=== PATIENT | female | born 1940 | race Caucasian/White ===

== ENCOUNTER 2021-01-23 13:41 | Emergency (ER) | payer OTHER ==
[2021-01-23 13:48] VITALS: BP 149/61; PULSE 60; TEMP 98.7; BMI 23.5
[2021-01-23] MEDS ORDERED: ACETAMINOPHEN 1000 MG/100 ML VIAL IVPB ONE ×2 (14:42→15:00)
[2021-01-23] MEDS ORDERED: ACETAMINOPHEN INJECTION 100 ML IVPB ONE (15:12)
[2021-01-23 15:33] LABS: INR 1.04 (0.83-1.09); PROTHROMBIN TIME (PATIENT) 12.6 SEC (9.7-13.0)
[2021-01-23 15:35] LABS: ACTIVATED PTT 31.1 SECONDS (25.2-36.5)
[2021-01-23 15:44] LABS: BLOOD UREA NITROGEN 21.6 mg/dL (7-18); CALCIUM 8.9 mg/dL (8.5-10.1)
[2021-01-23 15:45] LABS: ALBUMIN 3.2 g/dl (3.4-5.0)
[2021-01-23 15:48] LABS: CREATININE 0.8 mg/dL (0.55-1.3)
[2021-01-23 15:49] LABS: BILIRUBIN,TOTAL 0.5 mg/dL (0.2-1); TOT PROT 6.9 g/dl (6.4-8.2)
[2021-01-23 15:59] LABS: HEMATOCRIT 32.5 % (32.4-45.2); HEMOGLOBIN 10.8 GM/dL (10.7-15.3); MCHC 33.2 g/dl (32.0-36.0); MEAN CELL VOLUME 96.4 fl (80-96); PLATELET COUNT 269 10^3/uL (134-434); RBC 3.38 M/mm3 (3.60-5.2); RDW 14.6 % (11.6-15.6); WHITE BLOOD COUNT 6.9 K/mm3 (4.0-10.0)
[2021-01-23 17:15] LABS: ANISOCYTOSIS 1+; MACROCYTOSIS 0; OVALOCYTE 1+; PLATELET ESTIMATE NORMAL
== END 2021-01-23 18:13 | disposition home or self-care (01) ==
LOC: JER 13:41
PROC: 3E0333Z Introduction of Anti-inflammatory into Peripheral Vein, Percutaneous Approach (ICD-10-PCS; principal; 2021-01-23)
DX: M25.561 Pain in right knee (principal); M25.512 Pain in left shoulder; S09.90XA Unspecified injury of head, initial encounter; W01.0XXA Fall on same level from slipping, tripping and stumbling without subsequent striking against object, initial encounter
CPT/HCPCS: 36415; 70450-TC; 72125-TC; 73030-TC-LT-FY; 73070-TC-LT-FY; 73090-TC-LT-FY; 73110-TC-LT-FY; 73562-TC-RT-FY; 80053; 85025; 85610; 85730; 93005; 93010; 93971-TC; 99285-25; J0131

== ENCOUNTER 2021-08-20 14:19 | Observation (INO) | payer OTHER, MEDICARE ==
[2021-08-20] MEDS ORDERED: ACETAMINOPHEN 1000 MG/100 ML BAG IVPB ONE (15:31)
[2021-08-20] MEDS ORDERED: BEBTELOVIMAB (EUA) 175 MG/2 ML VIAL IVPUSH ONE (15:31)
[2021-08-20] MEDS ORDERED: ACETAMINOPHEN INJECTION 100 ML IVPB ONE (15:55)
[2021-08-20 16:14] LABS: VENOUS BASE EXCESS 2.3 mmol/L (-2-2); VENOUS PCO2 46.8 mmHg (38-52); VENOUS PH 7.392 (7.310-7.410)
[2021-08-20 16:18] LABS: BASO % 1.1 % (0-2.0); EOS % 1.1 % (0-4.5); HEMATOCRIT 34.6 % (32.4-45.2); HEMOGLOBIN 11.3 GM/dL (10.7-15.3); MCH 30.6 pg (25.7-33.7); MCHC 32.6 g/dl (32.0-36.0); MEAN CELL VOLUME 93.9 fl (80-96); MEAN PLT VOLUME 8.6 fl (7.5-11.1); MONO % 11.6 % (3.8-10.2); NEUT % 71.2 % (42.8-82.8); PLATELET COUNT 179 10^3/uL (134-434); RBC 3.69 M/mm3 (3.60-5.2); RDW 13.8 % (11.6-15.6); WHITE BLOOD COUNT 4.7 K/mm3 (4.0-10.0)
[2021-08-20 16:27] LABS: INR 1.37 (0.83-1.09); PROTHROMBIN TIME (PATIENT) 15.8 SEC (9.7-13.0)
[2021-08-20 16:30] LABS: ACTIVATED PTT 33.6 SECONDS (25.2-36.5)
[2021-08-20 16:31] LABS: ALBUMIN 3.7 g/dl (3.4-5.0); BLOOD UREA NITROGEN 16.2 mg/dL (7-18); CALCIUM 9.1 mg/dL (8.5-10.1)
[2021-08-20 16:34] LABS: BILIRUBIN,DIRECT 0.2 mg/dL (0.0-0.2); CREATININE 0.7 mg/dL (0.55-1.3)
[2021-08-20 16:36] LABS: BILIRUBIN,TOTAL 0.4 mg/dL (0.2-1); TOT PROT 7.3 g/dl (6.4-8.2)
[2021-08-20] MEDS ORDERED: ACETAMINOPHEN 325 MG TABLET (FP) PO PRN (18:02)
[2021-08-20] MEDS ORDERED: ALBUTEROL SO4 HFA INHALER IH PRN (18:02)
[2021-08-20] MEDS ORDERED: ATORVASTATIN CA 10 MG TABLET (FP) PO SCH (22:00)
[2021-08-21 01:39] VITALS: BMI 23.3
[2021-08-21 05:00] LABS: EPI CELLS 7 /uL (0-25.1); HYALINE CASTS 2 /uL (0-3.1); PH,URINE 5.5 (5.0-8.0); URINE APPEARANCE CLEAR; URINE BACTERIA 40 /uL (0-1359); URINE BILIRUBIN NEGATIVE (NEGATIVE); URINE COLOR YELLOW; URINE GLUCOSE (UA) NEGATIVE (NEGATIVE); URINE KETONE NEGATIVE (NEGATIVE); URINE LEUK ESTERASE NEGATIVE (NEGATIVE); URINE NITRITE NEGATIVE (NEGATIVE); URINE PROTEIN NEGATIVE (NEGATIVE); URINE RBC 15 /uL (0-23.9); URINE WBC 9 /uL (0-25.8)
[2021-08-21] MEDS ORDERED: ONDANSETRON 4 MG/2 ML VIAL IVPUSH ONE (06:11)
[2021-08-21 09:27] LABS: CALCIUM 8.3 mg/dL (8.5-10.1)
[2021-08-21 09:28] LABS: BLOOD UREA NITROGEN 19.4 mg/dL (7-18)
[2021-08-21 09:31] LABS: CREATININE 0.7 mg/dL (0.55-1.3)
[2021-08-21 10:00] LABS: URINE CRYSTALS CA OXALATE /hpf
[2021-08-21] MEDS ORDERED: PANTOPRAZOLE 40 MG TABLET PO SCH (10:00)
[2021-08-21] MEDS ORDERED: RIVAROXABAN 20 MG TABLET PO SCH (10:00)
[2021-08-21] MEDS ORDERED: AMIODARONE HCL 200 MG TABLET PO SCH (10:00)
[2021-08-21] MEDS ORDERED: POTASSIUM CHLORIDE TABS 20 MEQ TABLET.ER (FP) PO ONE (10:39)
[2021-08-21] MEDS ORDERED: SODIUM CHLORIDE 500 ML IV SCH (11:00)
[2021-08-21] MEDS ORDERED: SODIUM CHLORIDE 1,000 ML IV SCH (11:00)
[2021-08-21 13:57] VITALS: BP 119/71; PULSE 67; TEMP 98.5
[2021-08-21] MEDS ORDERED: TRIMETHOBENZAMIDE HCL 300 MG CAPSULE PO ONE (16:49)
== END 2021-08-21 18:31 | disposition home or self-care (01) ==
LOC: JER 14:19 → JERBED 16:43 → J5S 21:42
PROVIDERS: ADMIT Internal Medicine; ATTEND Internal Medicine
PROC: 3E033GC Introduction of Other Therapeutic Substance into Peripheral Vein, Percutaneous Approach (ICD-10-PCS; principal; 2021-08-20)
DX: U07.1 COVID-19 (principal); I10 Essential (primary) hypertension; E78.5 Hyperlipidemia, unspecified; I69.354 Hemiplegia and hemiparesis following cerebral infarction affecting left non-dominant side
CPT/HCPCS: 0241U-QW; 36415; 71045-TC-FY; 80048; 80053; 81003; 82248; 82728; 82803; 83605; 83615; 84484; 85025; 85610; 85730; 86140; 87040; 87086; 87807; 93005; 93010; 96374; 96375; 97116-GP; 97162-GP; 99285-25; C9803-CS; G0378; M0222; Q0222; U0003; U0005

== ENCOUNTER 2022-07-28 04:41 | Observation (INO) | payer MEDICARE, OTHER ==
[2022-07-28 05:37] LABS: BASO % 2.1 % (0-2.0); HEMATOCRIT 28.6 % (32.4-45.2); HEMOGLOBIN 9.6 GM/dL (10.7-15.3); LYMPH % 28.4 % (8-40); MCH 28.8 pg (25.7-33.7); MCHC 33.6 g/dl (32.0-36.0); MEAN CELL VOLUME 85.7 fl (80-96); MEAN PLT VOLUME 8.1 fl (7.5-11.1); MONO % 8.5 % (3.8-10.2); PLATELET COUNT 206 10^3/uL (134-434); RBC 3.34 M/mm3 (3.60-5.2); RDW 14.5 % (11.6-15.6); WHITE BLOOD COUNT 4.8 K/mm3 (4.0-10.0)
[2022-07-28 05:46] LABS: INR 0.97 (0.83-1.09); PROTHROMBIN TIME (PATIENT) 11.2 SEC (9.7-13.0)
[2022-07-28 06:03] LABS: CALCIUM 8.9 mg/dL (8.5-10.1)
[2022-07-28 06:04] LABS: ALBUMIN 3.4 g/dl (3.4-5.0); BLOOD UREA NITROGEN 23.4 mg/dL (7-18); MAGNESIUM 2.1 mg/dL (1.8-2.4)
[2022-07-28 06:07] LABS: CREATININE 0.8 mg/dL (0.55-1.3)
[2022-07-28 06:08] LABS: BILIRUBIN,TOTAL 0.2 mg/dL (0.2-1)
[2022-07-28 06:09] LABS: TOT PROT 6.9 g/dl (6.4-8.2)
[2022-07-28 06:11] VITALS: TEMP 98.1; BMI 24.1
[2022-07-28 06:12] LABS: N-TERMINAL BNP 1438.5 pg/ml (5-450)
[2022-07-28 07:21] VITALS: BP 140/94; PULSE 60; RESP 18
[2022-07-28] MEDS ORDERED: LEVOTHYROXINE NA 25 MCG TABLET (FP) PO SCH (09:30)
[2022-07-28] MEDS ORDERED: ENOXAPARIN NA (PORCINE) 40 MG/0.4 ML DISP.SYRIN SQ SCH (10:00)
[2022-07-28] MEDS ORDERED: SERTRALINE HCL 50 MG TABLET (FP) PO SCH (10:00)
[2022-07-28] MEDS ORDERED: MIRTAZAPINE 15 MG TABLET (FP) PO SCH (10:00)
[2022-07-28] MEDS ORDERED: GABAPENTIN 100 MG CAPSULE PO SCH (10:00)
[2022-07-28] MEDS ORDERED: SOLIFENACIN SUCCINATE 5 MG TAB PO SCH (10:00)
[2022-07-28] MEDS ORDERED: ARIPiprazole 2 MG TABLET PO SCH (10:00)
[2022-07-28] MEDS ORDERED: RIVAROXABAN 15 MG TABLET PO SCH (18:00)
[2022-07-28] MEDS ORDERED: ATORVASTATIN CA 10 MG TABLET (FP) PO SCH (22:00)
== END 2022-07-28 11:14 | disposition left against medical advice (07) ==
LOC: JER 04:41 → JERBED 06:10
PROVIDERS: ADMIT Internal Medicine; ATTEND Internal Medicine
DX: R07.89 Other chest pain (principal); I48.91 Unspecified atrial fibrillation; I10 Essential (primary) hypertension; E78.5 Hyperlipidemia, unspecified; Z95.0 Presence of cardiac pacemaker; F32.9 Major depressive disorder, single episode, unspecified; Z85.42 Personal history of malignant neoplasm of other parts of uterus; I44.7 Left bundle-branch block, unspecified; D64.9 Anemia, unspecified
CPT/HCPCS: 0241U-QW; 36415; 71045-TC-FY; 80053; 80061; 83735; 83880; 84484; 85025; 85610; 93005; 93010; 99285-25; G0378

== ENCOUNTER 2022-10-07 18:04 | Emergency (ER) | payer OTHER ==
[2022-10-07 18:36] VITALS: BP 181/73; PULSE 60; RESP 18; TEMP 98.2; BMI 25.7
[2022-10-07 19:28] LABS: BASO % 1.3 % (0-2.0); EOS % 4.6 % (0-4.5); HEMOGLOBIN 9.4 GM/dL (10.7-15.3); LYMPH % 18.5 % (8-40); MCH 26.8 pg (25.7-33.7); MCHC 32.3 g/dl (32.0-36.0); MEAN CELL VOLUME 82.9 fl (80-96); MEAN PLT VOLUME 7.8 fl (7.5-11.1); MONO % 9.2 % (3.8-10.2); NEUT % 66.4 % (42.8-82.8); PLATELET COUNT 230 10^3/uL (134-434); RDW 15.4 % (11.6-15.6); WHITE BLOOD COUNT 6.5 K/mm3 (4.0-10.0)
[2022-10-07 19:31] LABS: EPI CELLS 4 /uL (0-25.1); HYALINE CASTS 0 /uL (0-3.1); URINE APPEARANCE CLEAR; URINE BACTERIA 9 /uL (0-1359); URINE BILIRUBIN NEGATIVE (NEGATIVE); URINE COLOR YELLOW; URINE GLUCOSE (UA) NEGATIVE (NEGATIVE); URINE KETONE NEGATIVE (NEGATIVE); URINE LEUK ESTERASE NEGATIVE (NEGATIVE); URINE NITRITE NEGATIVE (NEGATIVE); URINE PROTEIN NEGATIVE (NEGATIVE); URINE RBC 15 /uL (0-23.9); URINE UROBILINOGEN 0.2 mg/dL (0.2-1.0); URINE WBC 4 /uL (0-25.8)
[2022-10-07 19:36] LABS: INR 1.2 (0.83-1.09); PROTHROMBIN TIME (PATIENT) 13.9 SEC (9.7-13.0)
[2022-10-07 19:47] LABS: POTASSIUM 3.9 mmol/L (3.5-5.1)
[2022-10-07 19:49] LABS: ALBUMIN 3.3 g/dl (3.4-5.0); CALCIUM 9.1 mg/dL (8.5-10.1); MAGNESIUM 2.1 mg/dL (1.8-2.4)
[2022-10-07 19:50] LABS: BLOOD UREA NITROGEN 26.7 mg/dL (7-18)
[2022-10-07 19:53] LABS: BILIRUBIN,TOTAL 0.2 mg/dL (0.2-1); CREATININE 0.9 mg/dL (0.55-1.3); TOT PROT 6.6 g/dl (6.4-8.2)
== END 2022-10-07 21:20 | disposition left against medical advice (07) ==
LOC: JER 18:04
DX: S09.90XA Unspecified injury of head, initial encounter (principal); R35.0 Frequency of micturition; W01.0XXA Fall on same level from slipping, tripping and stumbling without subsequent striking against object, initial encounter
CPT/HCPCS: 36415; 70450-TC; 72125-TC; 80053; 81003; 83735; 83880; 84484; 85025; 85610; 85730; 93005; 93010; 99285-25

== ENCOUNTER 2022-11-29 18:13 | Inpatient (IN) | payer OTHER ==
[2022-11-29] MEDS ORDERED: LACTATED RINGERS SOLUTION 1000 ML INFUS.BAG IV ONE (18:55)
[2022-11-29 19:28] LABS: BASO % 0.9 % (0-2.0); EOS % 1.5 % (0-4.5); HEMATOCRIT 30.1 % (32.4-45.2); HEMOGLOBIN 9.9 GM/dL (10.7-15.3); LYMPH % 21.3 % (8-40); MCH 27.4 pg (25.7-33.7); MEAN PLT VOLUME 7.7 fl (7.5-11.1); MONO % 9.1 % (3.8-10.2); NEUT % 67.2 % (42.8-82.8); PLATELET COUNT 204 10^3/uL (134-434); RBC 3.63 M/mm3 (3.60-5.2); RDW 15.7 % (11.6-15.6); WHITE BLOOD COUNT 5.7 K/mm3 (4.0-10.0)
[2022-11-29] MEDS ORDERED: FOLIC ACID 5 MG/1 ML SQ ONE (19:42)
[2022-11-29 19:43] LABS: POTASSIUM 3.5 mmol/L (3.5-5.1)
[2022-11-29] MEDS ORDERED: CYANOCOBALAMIN (VITAMIN B-12) 1000 MCG/1 ML VIAL IM ONE (19:43)
[2022-11-29 19:45] LABS: BLOOD UREA NITROGEN 20.4 mg/dL (7-18); CALCIUM 8.5 mg/dL (8.5-10.1); MAGNESIUM 1.9 mg/dL (1.8-2.4)
[2022-11-29 19:48] LABS: CREATININE 0.8 mg/dL (0.55-1.3)
[2022-11-29 19:50] LABS: BILIRUBIN,TOTAL 0.4 mg/dL (0.2-1); TOT PROT 6.3 g/dl (6.4-8.2)
[2022-11-29 19:52] LABS: INR 1.03 (0.83-1.09); PROTHROMBIN TIME (PATIENT) 11.9 SEC (9.7-13.0)
[2022-11-29 19:54] LABS: ACTIVATED PTT 27.3 SECONDS (25.2-36.5)
[2022-11-29] MEDS ORDERED: POTASSIUM CHLORIDE ORAL LIQUID 20 MEQ/15 ML PO ONE (20:14)
[2022-11-29] MEDS ORDERED: MAGNESIUM SULF 50% (8.12 MEQ/2 ML-1 GM VIAL) IVPB ONE (20:14)
[2022-11-29] MEDS ORDERED: LEVOTHYROXINE NA 25 MCG TABLET (FP) PO ONE (20:44)
[2022-11-29 21:50] LABS: EPI CELLS 4 /uL (0-25.1); HYALINE CASTS 0 /uL (0-3.1); PH,URINE 6.5 (5.0-8.0); URINE APPEARANCE CLEAR; URINE BACTERIA 5 /uL (0-1359); URINE BILIRUBIN NEGATIVE (NEGATIVE); URINE COLOR YELLOW; URINE GLUCOSE (UA) NEGATIVE (NEGATIVE); URINE KETONE 1+ (NEGATIVE); URINE LEUK ESTERASE TRACE (NEGATIVE); URINE NITRITE NEGATIVE (NEGATIVE); URINE PROTEIN NEGATIVE (NEGATIVE); URINE RBC 26 /uL (0-23.9); URINE UROBILINOGEN 0.2 mg/dL (0.2-1.0); URINE WBC 30 /uL (0-25.8)
[2022-11-29] MEDS ORDERED: LACTATED RINGERS SOLUTION 1,000 ML/1,000 ML INFUS.BAG IV SCH (22:45)
[2022-11-29] MEDS ORDERED: ASPIRIN COATED 81 MG TABLET.EC ONE (23:18)
[2022-11-29] MEDS ORDERED: ATORVASTATIN CA 40 MG TABLET (FP) ONE (23:19)
[2022-11-29] MEDS: ATORVASTATIN CA 40 MG TABLET (FP) PO SCH (23:39)
[2022-11-29] MEDS: ASPIRIN COATED 81 MG TABLET.EC PO SCH (23:39)
[2022-11-29 23:54] LABS: RETICULOCYTES 0.97 % (0.5-1.5)
[2022-11-30 01:28] LABS: ANISOCYTOSIS 2+; MACROCYTOSIS 0; OVALOCYTE 2+; TEAR DROP CELLS 1+
[2022-11-30] MEDS ORDERED: ASPIRIN COATED 81 MG TABLET.EC PO SCH (10:00)
[2022-11-30] MEDS ORDERED: ASPIRIN COATED 81 MG TABLET.EC ONE (10:37)
[2022-11-30] MEDS ORDERED: LEVOTHYROXINE NA 25 MCG TABLET (FP) ONE (10:37)
[2022-11-30] MEDS ORDERED: PANTOPRAZOLE 40 MG TABLET PO ONE (10:37)
[2022-11-30] MEDS ORDERED: AMIODARONE HCL 200 MG TABLET ONE (10:37)
[2022-11-30] MEDS ORDERED: SERTRALINE HCL 50 MG TABLET (FP) ONE (10:38)
[2022-11-30] MEDS: LEVOTHYROXINE NA 25 MCG TABLET (FP) PO SCH (10:48)
[2022-11-30] MEDS: AMIODARONE HCL 200 MG TABLET PO SCH (10:48)
[2022-11-30] MEDS: PANTOPRAZOLE 40 MG TABLET PO SCH (10:48)
[2022-11-30] MEDS: SERTRALINE HCL 50 MG TABLET (FP) PO SCH (10:48)
[2022-11-30] MEDS: ASPIRIN COATED 81 MG TABLET.EC PO SCH (10:48)
[2022-11-30] MEDS: D5-1/2NS+10 MEQ KCL - 10 MEQ/1,000 ML INFUS.BAG IV SCH (15:37)
[2022-11-30] MEDS ORDERED: LOSARTAN POTASSIUM 50 MG TABLET PO ONE (16:05)
[2022-11-30 16:59] VITALS: BMI 24.9
[2022-11-30] MEDS: CHOLECALCIFEROL (VIT D3) 5000 UNITS (125 MCG) CAP PO SCH (17:52)
[2022-11-30] MEDS ORDERED: RIVAROXABAN 15 MG TABLET PO SCH (18:00)
[2022-11-30] MEDS ORDERED: RIVAROXABAN 20 MG TABLET PO SCH (18:00)
[2022-11-30] MEDS ORDERED: MIRTAZAPINE 15 MG TABLET (FP) PO SCH (22:00)
[2022-11-30] MEDS: ATORVASTATIN CA 40 MG TABLET (FP) PO SCH (22:01)
[2022-12-01] MEDS: LEVOTHYROXINE NA 25 MCG TABLET (FP) PO SCH (06:23)
[2022-12-01] MEDS: D5-1/2NS+10 MEQ KCL - 10 MEQ/1,000 ML INFUS.BAG IV SCH (07:25)
[2022-12-01 08:43] LABS: BASO % 0.9 % (0-2.0); HEMATOCRIT 34.7 % (32.4-45.2); HEMOGLOBIN 11.1 GM/dL (10.7-15.3); LYMPH % 17.6 % (8-40); MCH 26.7 pg (25.7-33.7); MCHC 31.8 g/dl (32.0-36.0); MEAN CELL VOLUME 83.9 fl (80-96); MEAN PLT VOLUME 8.2 fl (7.5-11.1); MONO % 7.8 % (3.8-10.2); NEUT % 71.7 % (42.8-82.8); PLATELET COUNT 255 10^3/uL (134-434); RBC 4.14 M/mm3 (3.60-5.2); RDW 15.4 % (11.6-15.6); WHITE BLOOD COUNT 6.1 K/mm3 (4.0-10.0)
[2022-12-01 09:08] LABS: POTASSIUM 3.6 mmol/L (3.5-5.1)
[2022-12-01 09:13] LABS: CALCIUM 9.1 mg/dL (8.5-10.1)
[2022-12-01 09:15] LABS: BLOOD UREA NITROGEN 12.8 mg/dL (7-18)
[2022-12-01 09:16] LABS: CREATININE 0.8 mg/dL (0.55-1.3)
[2022-12-01] MEDS: ASPIRIN COATED 81 MG TABLET.EC PO SCH (09:24)
[2022-12-01] MEDS: PANTOPRAZOLE 40 MG TABLET PO SCH (09:24)
[2022-12-01] MEDS: CHOLECALCIFEROL (VIT D3) 5000 UNITS (125 MCG) CAP PO SCH (09:25)
[2022-12-01] MEDS: SERTRALINE HCL 50 MG TABLET (FP) PO SCH (09:25)
[2022-12-01] MEDS: AMIODARONE HCL 200 MG TABLET PO SCH (09:25)
[2022-12-01] MEDS ORDERED: LOSARTAN POTASSIUM 50 MG TABLET PO SCH ×2 (10:00)
[2022-12-01 14:15] VITALS: BP 146/68; PULSE 60; RESP 17; TEMP 97.8
== END 2022-12-01 14:16 | disposition home or self-care (01) | DRG 422 ==
LOC: JER 18:13 → JERBED 21:43 → OBSVTOIN 11-30 05:13 → J4S 11-30 16:19
PROVIDERS: ADMIT Internal Medicine; ATTEND Internal Medicine
DX: E86.0 Dehydration (principal); R42 Dizziness and giddiness; M62.81 Muscle weakness (generalized); I10 Essential (primary) hypertension; E78.5 Hyperlipidemia, unspecified; E03.9 Hypothyroidism, unspecified; E77.8 Other disorders of glycoprotein metabolism; F41.8 Other specified anxiety disorders; R00.0 Tachycardia, unspecified; I48.20 Chronic atrial fibrillation, unspecified; I44.7 Left bundle-branch block, unspecified; R63.0 Anorexia; Z68.24 Body mass index [BMI] 24.0-24.9, adult; R77.8 Other specified abnormalities of plasma proteins; Z85.42 Personal history of malignant neoplasm of other parts of uterus; Z95.0 Presence of cardiac pacemaker; Z98.84 Bariatric surgery status
CPT/HCPCS: 0241U-QW; 36415; 70450-TC; 71045-TC-FY; 80048; 80053; 81003; 82306; 82525; 82728; 82746; 83540; 83550; 83605; 83735; 84425; 84439; 84443; 84484; 85025; 85045; 85610; 85730; 87040; 87086; 93005; 93010; 99285-25; G0378

== ENCOUNTER 2023-05-23 08:32 | Inpatient (IN) | payer OTHER ==
[2023-05-23] MEDS ORDERED: LIDOCAINE 4% PATCH TP ONE (09:25)
[2023-05-23] MEDS ORDERED: ACETAMINOPHEN INJECTION 100 ML IVPB ONE (09:25)
[2023-05-23] MEDS: LIDOCAINE 5% TOPICAL PATCH TP ONE (09:48)
[2023-05-23] MEDS: ACETAMINOPHEN 1000 MG/100 ML BAG IVPB ONE (09:48)
[2023-05-23] MEDS: LIDOCAINE 4% PATCH TP ONE (09:49)
[2023-05-23 09:59] LABS: EOS % 2.4 % (0-4.5); HEMATOCRIT 29.1 % (32.4-45.2); HEMOGLOBIN 9.8 GM/dL (10.7-15.3); LYMPH % 13.1 % (8-40); MCH 28.5 pg (25.7-33.7); MCHC 33.5 g/dl (32.0-36.0); MEAN CELL VOLUME 85.1 fl (80-96); MONO % 11.1 % (3.8-10.2); NEUT % 72.4 % (42.8-82.8); PLATELET COUNT 334 10^3/uL (134-434); RBC 3.42 M/mm3 (3.60-5.2); RDW 17.5 % (11.6-15.6); WHITE BLOOD COUNT 7.5 K/mm3 (4.0-10.0)
[2023-05-23 10:04] LABS: INR 1.77 (0.83-1.09); PROTHROMBIN TIME (PATIENT) 20.4 SEC (9.7-13.0)
[2023-05-23 10:07] LABS: ACTIVATED PTT 32.7 SECONDS (25.2-36.5)
[2023-05-23 10:17] LABS: POTASSIUM 4.4 mmol/L (3.5-5.1)
[2023-05-23 10:19] LABS: ALBUMIN 2.9 g/dl (3.4-5.0); CALCIUM 8.9 mg/dL (8.5-10.1)
[2023-05-23 10:20] LABS: MAGNESIUM 1.9 mg/dL (1.8-2.4)
[2023-05-23 10:23] LABS: CREATININE 0.8 mg/dL (0.55-1.3); PHOSPHOROUS 3.8 mg/dL (2.5-4.9)
[2023-05-23 10:25] LABS: BILIRUBIN,TOTAL 0.5 mg/dL (0.2-1); TOT PROT 6.8 g/dl (6.4-8.2)
[2023-05-23] MEDS ORDERED: LACTATED RINGERS SOLUTION 1000 ML INFUS.BAG IV ONE (10:45)
[2023-05-23] MEDS: SODIUM CHLORIDE 0.9% 500 ML INFUS.BAG IV ONE ×2 (10:51→14:24)
[2023-05-23 14:46] LABS: EPI CELLS 18 /uL (0-25.1); HYALINE CASTS 0 /uL (0-3.1); PH,URINE 5.5 (5.0-8.0); URINE APPEARANCE TURBID; URINE BACTERIA >9,000 /uL (0-1359); URINE BILIRUBIN NEGATIVE (NEGATIVE); URINE COLOR YELLOW; URINE GLUCOSE (UA) NEGATIVE (NEGATIVE); URINE KETONE NEGATIVE (NEGATIVE); URINE LEUK ESTERASE 3+ (NEGATIVE); URINE NITRITE POSITIVE (NEGATIVE); URINE PROTEIN 1+ (NEGATIVE); URINE UROBILINOGEN 0.2 mg/dL (0.2-1.0); URINE WBC 21780 /uL (0-25.8)
[2023-05-23 14:49] LABS: URINE RBC 281.4 /uL (0-23.9); YEAST NEGATIVE (NEGATIVE)
[2023-05-23] MEDS ORDERED: HEPARIN NA (PORCINE) 5,000 UNITS/ML 1ML VIAL SQ SCH (15:15)
[2023-05-23] MEDS ORDERED: PANTOPRAZOLE 40 MG TABLET PO ONE (15:32)
[2023-05-23] MEDS ORDERED: HEPARIN NA (PORCINE) 5,000 UNITS/ML 1ML VIAL ONE (15:32)
[2023-05-23] MEDS: LIDOCAINE 4% PATCH TP SCH (15:38)
[2023-05-23] MEDS ORDERED: LIDOCAINE 5% TOPICAL PATCH TP SCH (15:45)
[2023-05-23] MEDS: PANTOPRAZOLE 40 MG TABLET PO SCH (15:51)
[2023-05-23] MEDS: CEFTRIAXONE 1 GM in DEXTROSE 5%-WATER - 50 ML IVPB ONE (15:51)
[2023-05-23] MEDS: HEPARIN NA (PORCINE) 5,000 UNITS/ML 1ML VIAL SQ SCH (15:51)
[2023-05-23] MEDS ORDERED: traMADol HCL 50 MG TABLET ONE (17:15)
[2023-05-23] MEDS: traMADol HCL 50 MG TABLET PO PRN (17:21)
[2023-05-23] MEDS ORDERED: LIDOCAINE PATCH REMOVAL MC ONE ×2 (22:00)
[2023-05-23] MEDS: MIRTAZAPINE 15 MG TABLET (FP) PO SCH (22:39)
[2023-05-23] MEDS: OXYBUTYNIN CHLORIDE 5 MG TABLET PO SCH (22:39)
[2023-05-23] MEDS: ATORVASTATIN CA 40 MG TABLET (FP) PO SCH (22:39)
[2023-05-23] MEDS: LIDOCAINE PATCH REMOVAL MC SCH (22:41)
[2023-05-24] MEDS: LEVOTHYROXINE NA 25 MCG TABLET (FP) PO SCH (06:32)
[2023-05-24 09:10] LABS: EOS % 4.6 % (0-4.5); HEMATOCRIT 26.1 % (32.4-45.2); HEMOGLOBIN 8.4 GM/dL (10.7-15.3); LYMPH % 17.1 % (8-40); MCH 27.6 pg (25.7-33.7); MCHC 32.3 g/dl (32.0-36.0); MEAN CELL VOLUME 85.5 fl (80-96); MEAN PLT VOLUME 7.3 fl (7.5-11.1); MONO % 12.3 % (3.8-10.2); PLATELET COUNT 294 10^3/uL (134-434); RBC 3.05 M/mm3 (3.60-5.2); RDW 17.6 % (11.6-15.6); WHITE BLOOD COUNT 4.7 K/mm3 (4.0-10.0)
[2023-05-24 09:55] LABS: ERYTHROCYTE SEDIMENTATION RATE 73 mm/hr (0-30)
[2023-05-24] MEDS: SERTRALINE HCL 50 MG TABLET (FP) PO SCH (09:55)
[2023-05-24] MEDS: ARIPiprazole 2 MG TABLET PO SCH (09:56)
[2023-05-24] MEDS: CHOLECALCIFEROL (VIT D3) 5000 UNITS (125 MCG) CAP PO SCH (09:56)
[2023-05-24] MEDS: AMIODARONE HCL 200 MG TABLET PO SCH (09:56)
[2023-05-24] MEDS: IRON SUCROSE INJECTION 300 MG in SODIUM CHLORIDE 235 ML IVPB ONE (09:56)
[2023-05-24] MEDS ORDERED: ASPIRIN COATED 81 MG TABLET.EC PO SCH (10:00)
[2023-05-24] MEDS: RIVAROXABAN 20 MG TABLET PO SCH (17:54)
[2023-05-25] MEDS: IRON SUCROSE INJECTION 300 MG in SODIUM CHLORIDE 235 ML IVPB ONE (10:14)
[2023-05-25] MEDS ORDERED: IRON SUCROSE INJECTION 300 MG in SODIUM CHLORIDE 235 ML IVPB ONE ×2 (11:30→12:00)
[2023-05-25] MEDS ORDERED: IOHEXOL (OMNIPAQUE PO) 12 MG/ML - 500 ML BOTTLE PO ONE ×2 (12:08→12:13)
[2023-05-25 15:53] LABS: EOS % 5.2 % (0-4.5); HEMOGLOBIN 9.2 GM/dL (10.7-15.3); LYMPH % 13.8 % (8-40); MCH 27.5 pg (25.7-33.7); MCHC 31.7 g/dl (32.0-36.0); MEAN CELL VOLUME 86.9 fl (80-96); MEAN PLT VOLUME 7.2 fl (7.5-11.1); MONO % 11.8 % (3.8-10.2); NEUT % 68.2 % (42.8-82.8); PLATELET COUNT 299 10^3/uL (134-434); RBC 3.34 M/mm3 (3.60-5.2); RDW 17.1 % (11.6-15.6); WHITE BLOOD COUNT 5.8 K/mm3 (4.0-10.0)
[2023-05-25 23:14] VITALS: BMI 24.3
[2023-05-26 08:55] LABS: BASO % 0.7 % (0-2.0); EOS % 2.7 % (0-4.5); HEMATOCRIT 27.1 % (32.4-45.2); HEMOGLOBIN 8.9 GM/dL (10.7-15.3); LYMPH % 10.3 % (8-40); MCHC 32.7 g/dl (32.0-36.0); MEAN CELL VOLUME 85.5 fl (80-96); MEAN PLT VOLUME 7.3 fl (7.5-11.1); MONO % 9.6 % (3.8-10.2); NEUT % 76.7 % (42.8-82.8); PLATELET COUNT 308 10^3/uL (134-434); RBC 3.17 M/mm3 (3.60-5.2); RDW 16.6 % (11.6-15.6); WHITE BLOOD COUNT 6.9 K/mm3 (4.0-10.0)
[2023-05-26] MEDS: MULTIVITAMINS (DAILY MVI) TABLET (FP) PO SCH (09:23)
[2023-05-26] MEDS: POLYETHYLENE GLYCOL (HEALTHYLAX) 3350 17 GM PACKET PO SCH (09:23)
[2023-05-26] MEDS: ASCORBIC ACID 500 MG TABLET (FP) PO SCH (09:23)
[2023-05-26] MEDS: FE POLYSAC/CYANOCOBAL/FA COMBO CAPSULE PO SCH (09:23)
[2023-05-27] MEDS: DOCUSATE SODIUM 100 MG CAPSULE (FP) PO SCH (21:15)
[2023-05-28 10:12] LABS: BASO % 0.8 % (0-2.0); EOS % 4.7 % (0-4.5); HEMATOCRIT 26.3 % (32.4-45.2); HEMOGLOBIN 8.5 GM/dL (10.7-15.3); LYMPH % 12.7 % (8-40); MCH 28.2 pg (25.7-33.7); MCHC 32.2 g/dl (32.0-36.0); MEAN CELL VOLUME 87.6 fl (80-96); MEAN PLT VOLUME 7.5 fl (7.5-11.1); NEUT % 73.8 % (42.8-82.8); PLATELET COUNT 295 10^3/uL (134-434); RDW 16.6 % (11.6-15.6)
[2023-05-28] MEDS: FE POLYSAC/CYANOCOBAL/FA COMBO CAPSULE PO SCH (12:06)
[2023-05-28] MEDS: ACETAMINOPHEN 325 MG TABLET (FP) PO PRN (15:25)
[2023-05-29] MEDS ORDERED: MINERAL OIL ENEMA 133 ML ENEMA RC ONE (08:00)
[2023-05-29] MEDS: POLYETHYLENE GLYCOL (HEALTHYLAX) 3350 17 GM PACKET PO SCH (09:20)
[2023-05-29 09:57] LABS: EOS % 3.9 % (0-4.5); HEMATOCRIT 25.5 % (32.4-45.2); HEMOGLOBIN 8.4 GM/dL (10.7-15.3); LYMPH % 13.6 % (8-40); MCHC 32.9 g/dl (32.0-36.0); MEAN CELL VOLUME 85.3 fl (80-96); MEAN PLT VOLUME 7.2 fl (7.5-11.1); MONO % 6.5 % (3.8-10.2); PLATELET COUNT 320 10^3/uL (134-434); RBC 2.98 M/mm3 (3.60-5.2); RDW 17.4 % (11.6-15.6); WHITE BLOOD COUNT 6.2 K/mm3 (4.0-10.0)
[2023-05-29 11:05] VITALS: BP 123/55; PULSE 61; RESP 17; TEMP 98.3
== END 2023-05-29 15:37 | DRG 551 ==
LOC: JER 08:32 → JERBED 13:14 → OBSVTOIN 13:14 → J6S 21:44
PROVIDERS: ADMIT Internal Medicine; ATTEND Internal Medicine
DX: S32.018A Other fracture of first lumbar vertebra, initial encounter for closed fracture (principal); R53.2 Functional quadriplegia; S22.088A Other fracture of T11-T12 vertebra, initial encounter for closed fracture; I48.20 Chronic atrial fibrillation, unspecified; M54.50 Low back pain, unspecified; I10 Essential (primary) hypertension; M62.81 Muscle weakness (generalized); E03.9 Hypothyroidism, unspecified; M25.552 Pain in left hip; L89.152 Pressure ulcer of sacral region, stage 2; D50.9 Iron deficiency anemia, unspecified; E78.5 Hyperlipidemia, unspecified; E88.09 Other disorders of plasma-protein metabolism, not elsewhere classified; N30.90 Cystitis, unspecified without hematuria; F41.8 Other specified anxiety disorders; Z95.0 Presence of cardiac pacemaker; Z85.42 Personal history of malignant neoplasm of other parts of uterus; Z98.84 Bariatric surgery status; X58.XXXA Exposure to other specified factors, initial encounter; Y93.9 Activity, unspecified; Y92.098 Other place in other non-institutional residence as the place of occurrence of the external cause; Y99.9 Unspecified external cause status
CPT/HCPCS: 0241U-QW; 36415; 71045-TC-FY; 72131-TC; 72170-TC-FY; 73502-TC-RT-FY; 73700-TC-RT; 74177-TC; 80053; 81003; 82272; 82607; 82728; 82746; 83540; 83550; 83735; 84100; 84443; 84481; 84484; 85025; 85610; 85651; 85730; 86140; 86850; 86900; 86901; 87086; 87186; 93005; 93010; 97116-GP; 97162-GP; 99285-25; J0131; J1644; J1756